=== PATIENT | female | born 1990 | race Caucasian/White ===

== ENCOUNTER 2024-04-12 05:32 | Inpatient (IN) ==
--- NOTE | 2024-04-05 08:49 | Anesthesiology Consultation ---
Date of Service April 05, 2024 Assessment & Plan (1) Encounter for pre-operative examination: - Per park maintainer on 04/05/24: No known infectious disease contacts, current infectious disease symptoms in past 10 days or COVID positive test result in the past 30 days. Chart Review Chart Review: entry level initiated History Surgery Operation Date: 04/12/24 07:30 Proposed Procedures p Section - Gisselle Alvarenga MD Height/Weight Height: 5 ft 9.5 in Weight: 110.677 kg Allergies Allergy/AdvReac Type Severity Reaction Status Date / Time No Known Allergies Allergy Verified 04/11/24 10:37 Medications Home Medications Medication Instructions Recorded Confirmed Last Taken aspirin 81 mg tablet,delayed 81 mg PO QAM 11/29/23 04/12/24 04/12/24 release cholecalciferol (vitamin D3) 25 25 mcg PO QAM 11/29/23 04/12/24 04/12/24 mcg (1,000 unit) capsule prenat.vits,aaron,can-tiey-rpmkx 1 tab PO QAM 11/29/23 04/12/24 04/12/24 Active Medications Generic Name Dose Route Start Last Admin Trade Name Freq PRN Reason Stop Dose Admin Acetaminophen 1,000 mg 04/12/24 06:00 04/12/24 06:31 Acetaminophen 500 Mg Tab PO 04/12/24 18:00 1,000 mg PREOP PEGGY Administration Past Medical History Medical History History of infertility unexplained secondary infertility - July 2023 IUI treatment History of rhabdomyolysis (2018) due to exercise - no long lasting issues. treated at [facility] History of spontaneous (05/2022) Past Family History Family History Mother Diabetes Autoimmune hepatitis Thyroid disease Father Brain cancer Grandmother (Maternal) Colorectal cancer Grandfather (Maternal) Heart disease Sister Pre-eclampsia Other No family history of adverse response to anesthesia Past Surgical History Surgical History Hx of section (2020) emergency due to decels. S/P tonsillectomy S/P wisdom tooth extraction Social History Smoking Status: Never smoker Do You Dip or Chew Tobacco: No Hx Alcohol Use: No Hx Substance Use: No substance use type: does not use Physical Exam Vital Signs Last Vital Signs Temp 36.9 C 04/12/24 05:53 Pulse 63 04/12/24 07:11 Resp 20 04/12/24 05:53 BP 109/66 04/12/24 07:11 Testing Laboratory Results 04/12/24 05:43 Blood Type A Positive 04/12/24 05:43 Antibody Screen NEGATIVE 04/12/24 05:43
[2024-04-12 06:02] LABS: Basophils # (auto) 0.06 K/uL (0.00-0.20); Basophils % (auto) 0.6 %; Eosinophils # (auto) 0.13 K/uL (0.00-0.50); Eosinophils % (auto) 1.2 %; Immature Granulocytes # (auto) 0.08 K/uL (0.01-0.20); Immature Granulocytes % (auto) 0.7 %; Lymphocytes # (auto) 1.89 K/uL (1.20-3.40); Lymphocytes % (auto) 17.5 %; Mean Corpuscular Hemoglobin 30.4 pg (25.0-34.0); Mean Corpuscular Hgb Conc 34.4 g/dL (32.0-36.0); Mean Corpuscular Volume 88.4 fL (80.0-100.0); Mean Platelet Volume 10.7 fL (9.4-12.4); Monocytes % (auto) 8.3 %; Neutrophils # (auto) 7.72 K/uL (1.40-6.50); Neutrophils % (auto) 71.7 %; Platelet Count 183 K/uL (130-400); RDW Coefficient of Variation 12.6 % (11.5-14.5); RDW Standard Deviation 40.3 fL (36.4-46.3); Red Blood Count 3.62 M/uL (4.20-5.40); White Blood Count 10.78 K/ul (4.8-10.8)
[2024-04-12] MEDS ORDERED: SODIUM CHLORIDE 0.9% 100 ML IV PRN (06:14)
[2024-04-12] MEDS ORDERED: SODIUM CHLORIDE 0.9% 50 ML IV PRN (06:14)
[2024-04-12] MEDS: ACETAMINOPHEN 500 MG TAB PO SCH (06:31)
[2024-04-12] MEDS ORDERED: SODIUM CHLORIDE 0.9% 1,000 ML IV SCH (06:45)
[2024-04-12] MEDS ORDERED: PHENYLEPHRINE 100MCG/ML 5ML SYR ONE (06:46)
[2024-04-12] MEDS ORDERED: PHENYLEPHRINE HCL 25 MG/250 ML NSS IV ONE (06:47)
[2024-04-12] MEDS ORDERED: DEXAMETHASONE SOD INJ 4 MG/ML VIAL ONE (06:50)
[2024-04-12] MEDS ORDERED: ONDANSETRON INJ 2 MG/ML 2 ML VIAL ONE (06:50)
[2024-04-12] MEDS ORDERED: fentaNYL citrate PF 100 MCG/2 ML VIAL ONE (06:50)
[2024-04-12] MEDS ORDERED: MoRPHine SULFATE PF 1 MG/ML 10 ML AMP/VIAL ONE (06:50)
[2024-04-12] MEDS: SODIUM CHLORIDE 0.9% 1,000 ML IV SCH (07:04)
[2024-04-12] MEDS ORDERED: OXYTOCIN 20 UNITS/1002ML LR IV ONE (07:12)
[2024-04-12] MEDS: CITRIC ACID/SODIUM CITRATE 15 ML UDC PO SCH (07:19)
--- NOTE | 2024-04-12 07:28 | History & Physical Bridge Note ---
Date of Service April 12, 2024 History & Physical Bridge Note I have examined the patient, reviewed the History & Physical and in the interval since the performance of the History & Physical I have noted the following changes of clinical significance: no changes noted
[2024-04-12] MEDS: ceFAZolin 3000MG 3,000 MG/72.5 ML BAG IV SCH (07:29)
[2024-04-12] MEDS ORDERED: MIDAZOLAM HCL 1 MG/ML 2ML VIAL ONE (08:12)
[2024-04-12] MEDS ORDERED: KETAMINE HCL 10MG/ML SYR ONE (08:12)
[2024-04-12] MEDS ORDERED: HYDROmorphone INJ 0.5 MG/0.5 ML SYR IV PRN (08:24)
[2024-04-12] MEDS ORDERED: MoRPHine SULFATE PF 1 MG/ML 10 ML AMP/VIAL INT SPINAL ONE (08:24)
[2024-04-12] MEDS ORDERED: NALOXONE HCL 0.08 MG in SYRINGE 1.8 ML IV PRN (08:24)
[2024-04-12] MEDS ORDERED: oxyCODONE HCL IR 5 MG TAB (IMMEDIATE RELEASE) PO PRN (08:24)
[2024-04-12] MEDS ORDERED: NALBUPHINE HCL INJ 10 MG/ML AMP IV PRN (08:24)
[2024-04-12] MEDS ORDERED: NALOXONE HCL 1 MG in SODIUM CHLORIDE 0.9% 1,000 ML IV PRN (08:24)
[2024-04-12] MEDS ORDERED: diphenhydrAMINE 50 MG/ML VIAL IV PRN (08:24)
[2024-04-12] MEDS ORDERED: NALOXONE HCL 0.4 MG/1 ML VIAL/CARP IV PRN (08:24)
[2024-04-12] MEDS ORDERED: PROMETHAZINE 6.25 MG/50.25 ML BAG IV PRN (08:24)
[2024-04-12] MEDS ORDERED: ONDANSETRON INJ 2 MG/ML 2 ML VIAL IV PRN ×2 (08:24→09:02)
[2024-04-12] MEDS ORDERED: ePHEDrine sulfate 50 MG/ML AMP IV PRN (08:24)
[2024-04-12] MEDS ORDERED: DC INTRASPINAL MORPHINE SCH (08:30)
[2024-04-12] MEDS ORDERED: NO NARCOTICS OR SEDATIVES SCH (08:30)
[2024-04-12 08:46] LABS: Base Excess Cord Arterial Bld -0.4 mEq/L (-9-1.8); CO2 Cord Arterial Blood 67 mmHg (39.1-73.5); HCO3 Cord Arterial Blood 29 mmol/L (19.7-28.5); Oxygen Sat Cord Arterial Blood < 60.0 % (<60); PO2 Cord Arterial Blood < 20 mmHg (4.1-31.7); pH Cord Arterial Blood 7.24 (7.1-7.38)
--- NOTE | 2024-04-12 08:48 | Operative Report ---
PG Post Operative Report Pre & Post Diagnosis Operation Date: 04/12/24 07:30 Pre-Op Diagnosis: Prior section. SIUP @ Term. Declines trial of labor after . I identified the patient and participated in the time-out.: Yes Procedure Operation Date: 04/12/24 07:30 Actual Procedures Repeat Low Transverse Section Surgeon Gisselle Alvarenga MD Admissions Supervisor Tiffany, PGY2 Estimated Blood Loss 580 Findings Consistent with Post-Op Diagnosis Specimens placenta, cord blood, cord gases Anesthesia Type Spinal Complications none Disposition Accompanied Patient To Recovery: Yes Disposition: L&D Description of Procedure The patient was placed operating table in the supine position with a leftward tilt. She was prepped and draped in standard sterile fashion. The anesthetic was tested and found to be adequate. A time-out was held, identifying correct patient, procedure, positioning and preoperative antibiotics. There were no concerns. A Pfannenstiel skin incision was made with a knife and taken down to the unde rlying layer of fascia, excising the prior cicatrix. The fascia was incised in the midline with the knife and taken out laterally with scissors. The superior edge of the fascial incision was grasped, elevated and dissected off the underlying rectus both superiorly and inferiorly. The muscles were bluntly in the midline. The peritoneum was entered bluntly. The incision was then stretched. The bladder retractor was placed. The vesicouterine peritoneum was identified, entered with scissors and taken out laterally with scissors. The bladder flap was created digitally. A hysterotomy incision was created transversely in the lower uterine segment, final entry being accomplished in a blunt manner with the thermal spray operator's fingers. Meconium stained amniotic fluid was encountered. The thermal spray operator's hand was used to elevate the head to the hysterotomy. Due to difficulty achieving delivery of the head, a Kiwi cup vacuum was applied, and an attempt was made to deliver the head. Once again there was difficulty achieving delivery. Bandage scissors were then used to create a 1cm midline vertical extension of the hysterotomy. The Kiwi cup vacuum was reapplied and the head was delivered using mild fundal pressure. The shoulders and body followed without difficulty. The cord was clamped and cut and the was then handed off to the awaiting v belt finisher. Cord blood was obtained. A segment of the cord was saved for collection of cord blood gases. The placenta was Manually extracted. The uterus was exteriorized and cleared of all clot and debris with moistened laparotomy sponges. The vertical extension of the hysterotomy was repaired using vicryl suture in a running locked manner. The transverse hysterotomy incision was repaired in two layers, the first in a r unning locked layer, the second in an imbricating layer. The ovaries and tubes were seen to be normal bilaterally. The uterus was gently replaced in the abdomen, and the gutters were cleared of clot and debris. A final inspection of the hysterotomy revealed good hemostasis. The rectus muscles were allowed to reapproximate naturally. The fascia was then reapproximated with 1 Vicryl in a running nonlocked manner. The fascia was examined and found to be free of defect following closure. The subcutaneous tissue was copiously irrigated and reapproximated with 0-chromic, then the skin edges were closed with 4-0 monocryl in a subcuticular fashion. A dermabond dressing was applied. The del toro was found to be draining clear yellow urine at completion of the procedure. I attest to the content of the Intraoperative Record and any orders documented therein. Any exceptions are noted below. I attest to the content of the Intraoperative Record and any orders documented therein. Any exceptions are noted below. OB Procedure Charges 28848
[2024-04-12] MEDS: OXYTOCIN 20 UNITS/LR 1,002 ML IV SCH (08:50)
[2024-04-12] MEDS ORDERED: CALCIUM CARBONATE 500 MG CHEWABLE TAB PO PRN (09:02)
[2024-04-12] MEDS ORDERED: DIPHTHER/TETAN/PERTUS Vaccine (Tdap, Adol/Adult) 0.5mL IM ONE (09:02)
[2024-04-12] MEDS ORDERED: HYDROCORTISONE ACETATE 25 MG SUPP PR PRN (09:02)
[2024-04-12] MEDS ORDERED: MAGNESIUM HYDROXIDE SUSP 30 ML UDC PO PRN (09:02)
[2024-04-12] MEDS ORDERED: BENZOCAINE 20% SPRY 85 APPLN/85 GM CAN EXT PRN (09:02)
[2024-04-12] MEDS ORDERED: SENNA 8.6 MG TAB PO PRN (09:02)
[2024-04-12] MEDS: KETOROLAC 30 MG/ML VIAL IV SCH (09:22)
--- NOTE | 2024-04-12 09:57 | Anesthesiology Progress Note ---
Date of Service April 12, 2024 Anesthesia Post Procedure Vital Signs Vital Signs: Temp Pulse Resp BP Pulse Ox 04/12/24 09:54 62 117/70 04/12/24 09:53 63 99 04/12/24 09:48 63 98 04/12/24 09:44 60 111/62 04/12/24 09:43 70 99 04/12/24 09:40 18 04/12/24 09:38 69 99 04/12/24 09:35 68 98/54 L 04/12/24 09:33 68 99 04/12/24 09:30 18 04/12/24 09:28 63 100 04/12/24 09:24 65 107/62 04/12/24 09:23 62 100 04/12/24 09:20 18 04/12/24 09:18 64 100 04/12/24 09:13 61 100 04/12/24 09:10 18 04/12/24 09:08 68 100 04/12/24 09:03 60 100 04/12/24 09:00 36.9 C 18 04/12/24 08:58 67 100 04/12/24 08:53 57 L 100 04/12/24 08:48 59 L 129/66 99 04/12/24 07:15 36.8 C 18 04/12/24 07:15 18 04/12/24 07:15 36.8 C 18 04/12/24 07:11 63 109/66 04/12/24 05:53 36.9 C 20 04/12/24 05:47 68 115/74 Transfer of Care Handoff Completed per policy Notes Mental Status: alert / awake / arousable and participated in evaluation Patient Amnestic to Procedure: No Nausea / Vomiting: adequately controlled Pain: adequately controlled Airway Patency, RR, SpO2: stable & adequate BP & HR: stable & adequate Hydration State: stable & adequate Neuraxial Anesthesia: was administered and sensory block is resolving Anesthetic Complications: no major complications apparent and Pt Satisfied with anesthetic care
[2024-04-12] MEDS: ACETAMINOPHEN 325 MG TAB PO SCH (15:15)
[2024-04-12] MEDS: SIMETHICONE 80 MG CHEW PO SCH (15:17)
[2024-04-12] MEDS: DOCUSATE SODIUM 100 MG CAP PO SCH (20:54)
[2024-04-13] MEDS ORDERED: HYDROmorphone INJ 0.5 MG/0.5 ML SYR IV PRN (02:25)
[2024-04-13 06:29] LABS: Basophils # (auto) 0.03 K/uL (0.00-0.20); Basophils % (auto) 0.3 %; Eosinophils # (auto) 0.11 K/uL (0.00-0.50); Eosinophils % (auto) 0.9 %; Hematocrit (blood only) 25.1 % (37.0-47.0); Hemoglobin 8.6 g/dl (12.0-16.0); Immature Granulocytes # (auto) 0.08 K/uL (0.01-0.20); Immature Granulocytes % (auto) 0.7 %; Lymphocytes # (auto) 2.26 K/uL (1.20-3.40); Lymphocytes % (auto) 19.4 %; Mean Corpuscular Hemoglobin 30.7 pg (25.0-34.0); Mean Corpuscular Hgb Conc 34.3 g/dL (32.0-36.0); Mean Corpuscular Volume 89.6 fL (80.0-100.0); Mean Platelet Volume 11.1 fL (9.4-12.4); Monocytes # (auto) 0.71 K/uL (0.11-0.59); Monocytes % (auto) 6.1 %; Neutrophils # (auto) 8.43 K/uL (1.40-6.50); Neutrophils % (auto) 72.6 %; Platelet Count 155 K/uL (130-400); RDW Coefficient of Variation 12.6 % (11.5-14.5); White Blood Count 11.62 K/ul (4.8-10.8)
--- NOTE | 2024-04-13 06:44 | Obstetrical Progress Note ---
Date of Service April 13, 2024 Assessment & Plan (1) delivery delivered: Plan 34 years P2, 1st POD following delivery. Both mom and baby doing well. Post op Hb: awaited Vitals: Stable Continue care as per protocol. Encouraged nursing. Encouraged ambulation. Discharge tomorrow. Admission and Anticipated Discharge Date Admission Date: April 12, 2024 Supervising Physician Co-Signing Physician Notes Resident Physician Supervision Note: I interviewed and examined the patient. Discussed with [ ] and agree with findings and plan as documented in the note. Any exceptions or clarifications are listed here: [ ] Documented By: Gisselle Alvarenga MD, FACOG Subjective 34 years P2, 1st POD following delivery. No active complains Both mom and baby doing well. Mom Lying comfortable on bed. Pain: Mild, intermittent, manageable on painkillers. Lochia: Moderate Diet: Regular OB diet Gas: Passed gas Peeing: Passed Urine after del toro's removal Ambulation: to Bathroom/ Corridor without any complication Bottle feeding with formula, does not prefer breast feed. Answered her queries. Review of Systems Review of Systems: No SOB, chest pain, leg pain No dizziness, headache, palpitation No Blurring of vision , fever Physical Exam Physical Exam: General: Alert and oriented. No acute distress. CVS: S1 S2+ No murmurs, regular rhythm. Respiratory: CTA bilaterally. No rhonchi, wheezes, or crackles. No increased work of breathing. Abdomen: Bowel sound +. Soft, nontender Uterus: Fundus firm and palpable few cm below the umbilicus. Incision site looks healthy: Dry, No swelling, Erythema Lower extremities: No LE edema. No deep calf pain. Results & Data Vital Signs (Past 12 Hours) Vital Signs Temp Pulse Resp BP Pulse Ox O2 Del Method 04/13/24 03:01 36.7 C 60 16 106/66 98 Room Air 04/13/24 02:25 18 98 04/13/24 02:00 16 99 04/13/24 00:56 16 96 04/13/24 00:15 18 97 04/12/24 23:00 16 98 04/12/24 23:00 36.7 C 60 16 115/73 98 Room Air 04/12/24 21:58 16 98 04/12/24 21:01 18 98 04/12/24 20:00 18 98 04/12/24 18:59 18 99 04/12/24 18:59 36.8 C 58 L 18 116/70 99 Room Air Resident Activity Tracking Resident Involvement: Resident Care Provided Care Provided: OB Delivery
[2024-04-13] MEDS: PRENATAL VITAMIN 1 TAB PO SCH (08:01)
[2024-04-13] MEDS: FERROUS SULFATE 325 MG TAB PO SCH (08:02)
[2024-04-13] MEDS ORDERED: KETOROLAC 30 MG/ML VIAL IV PRN (08:38)
[2024-04-13] MEDS: IBUPROFEN 600 MG TAB PO SCH (08:52)
[2024-04-13] MEDS: oxyCODONE HCL IR 5 MG TAB (IMMEDIATE RELEASE) PO PRN (13:37)
[2024-04-13] MEDS: bisacodyL 5 MG TABEC PO SCH (20:33)
[2024-04-14 07:08] VITALS: BP 116/75; PULSE 60; RESP 16; TEMP 97.5; O2SAT 99
--- NOTE | 2024-04-14 07:09 | Obstetrical Progress Note ---
Date of Service April 14, 2024 Assessment & Plan (1) delivery delivered: Day 2 status post section. Patient doing well. Routine care Subjective Ambulation: ambulating normally Voiding: no voiding problems Passing Gas:: Yes Diet Tolerance:: regular diet Lochia:: Moderate Feeding Type:: breast feeding Physical Exam Constitutional WD/WN, vitals as above Respiratory normal respiratory effort; no respiratory distress and no labored breathing Cardiovascular Extremities: no calf tenderness Gastrointestinal (Abdomen) Inspection/Auscultation: abdomen normal to inspection; abdomen not distended Percussion/Palpation: abdomen soft; abdomen nontender, no guarding and abdomen not rigid Incision clean, dry and intact Genitourinary OB Exam Abdomen: + fundal height Fundus: + firm and + relation to umbilicus (Below); not tender or not boggy Results & Data Vital Signs (Past 12 Hours) Vital Signs Temp Pulse Pulse Resp BP Pulse Ox O2 Del Method 04/14/24 00:40 36.8 C 65 18 130/73 97 Room Air 04/13/24 20:40 36.8 C 64 18 110/70 99 Room Air
[2024-04-14 07:21] LABS: Hemoglobin 8.9 g/dl (12.0-16.0)
[2024-04-14] MEDS ORDERED: bisacodyL 10 MG SUPP PR PRN (08:38)
[2024-04-14] MEDS: IBUPROFEN 600 MG TAB PO PRN (09:08)
--- NOTE | 2024-04-16 16:26 | Discharge Summary ---
Date of Service April 16, 2024 Discharge Data Consultations 04/12/24 05:33 Consult Anesthesiology Stat Procedures Performed Operation Date: 04/12/24 07:30 Actual Procedures p Section for viable male child at 0810(Bilateral) - Gisselle Alvarenga MD Coding Level of Care Code None
== END 2024-04-14 13:30 | disposition home or self-care (01) | DRG 788 ==
LOC: 4S1 05:32 → EDSTATUS 07:30 → 4E2 11:42
DX: O34.211 Maternal care for low transverse scar from previous cesarean delivery; Z3A.00 Weeks of gestation of pregnancy not specified; Z37.0 Single live birth